=== PATIENT | male | born 1965 | race Two or more races ===

== ENCOUNTER 2018-02-01 12:20 | Outpatient (CLI) | payer BC ==
--- NOTE | 2018-02-01 14:20 | Diagnostic Imaging Report ---
Indication: Lower back pain Technique: 4 views of the lumbar spine Comparison: None Findings: Vertebral body heights are preserved. Disc spaces are preserved. There is minimal anterior degenerative proliferative changes at L5. Pedicles are intact. Sacral arches are preserved. Sacralization spaces are preserved. The surrounding soft tissues are unremarkable. There is mild facet arthrosis and L4-5 and L5-S1 on the right. Impression: Mild degenerative changes as described. No acute bony trauma
== END 2018-02-01 14:20 | disposition home or self-care (01) ==
LOC: RAD 12:20
DX: M54.42 Lumbago with sciatica, left side (principal); M54.41 Lumbago with sciatica, right side; M62.838 Other muscle spasm; M47.9 Spondylosis, unspecified
CPT/HCPCS: 72110